=== PATIENT | male | born 1995 | race Two or more races ===

== ENCOUNTER → 2020-12-04 11:33 | Outpatient (BNVA) | payer OTHER, SELFPAY | PROVIDERS: Visit Provider Physician Assistant Medical | DX: S00.212A Abrasion of left eyelid and periocular area, initial encounter (principal); S00.81XA Abrasion of other part of head, initial encounter; W20.8XXA Other cause of strike by thrown, projected or falling object, initial encounter | CPT/HCPCS: 99202 ==

== ENCOUNTER → 2020-12-06 15:23 | Outpatient (BNVA) | payer OTHER, SELFPAY | PROVIDERS: Visit Provider Physician Assistant Medical | DX: S00.212A Abrasion of left eyelid and periocular area, initial encounter (principal); S00.81XA Abrasion of other part of head, initial encounter; W20.8XXA Other cause of strike by thrown, projected or falling object, initial encounter | CPT/HCPCS: 99213 ==

== ENCOUNTER 2023-07-14 13:28 | Emergency (ER) | payer OTHER, SELFPAY ==
--- NOTE | ~2023-07-14 | XR_ITS ---
EXAMINATION: XR HAND, RIGHT CLINICAL INFORMATION: Hand caught with machinery at work. COMPARISON: None available. TECHNIQUE: PA, lateral, and oblique views of the right hand. FINDINGS: Bandaging is identified about the third digit. Soft tissue injury is seen at the level of the third middle phalanx but no fracture or dislocation. Alignment and articulations are maintained. Mild soft tissue prominence second PIP. XR/XR hand RT min 3V IMPRESSION: Third digit soft tissue injury. No acute bony pathology.
[2023-07-14 13:34] VITALS: BP 160/107; PULSE 106; RESP 19; TEMP 36.6; O2SAT 99; BMI 37.8
--- NOTE | 2023-07-14 13:35 | ED.GENADULT ---
HPI - General Adult General Chief complaint: Wound/Laceration Stated complaint: R Finger Lac Work Injury 07/14/23 Time Seen by Provider: 07/14/23 15:38 Source: patient Mode of arrival: ambulatory Limitations: no limitations History of Present Illness HPI narrative: 27 year old male with no chronic history presents to ER for evaluation of laceration to right 3rd digit that he sustained 3 hours ago at his jobsite. 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 Describes pain to site of injury but no pain elsewhere. Reports the laceration is still actively bleeding. Denies taking any medications ASSESSMENT CLINICIAN. Denies weakness, dizziness, lightheadedness, other injuries. complaint: laceration Onset (ago): hour(s) Location: upper extremity (Right 3rd phalange) Radiation: non-radiation Associated symptoms: denies other symptoms Related Data Allergies Allergy/AdvReac Type Severity Reaction Status Date / Time No Known Allergies Allergy Verified 07/14/23 13:34 Review of Systems Review of Systems: Yes all other systems are reviewed and are negative [facility] Social History Social History Advance Directives: No Advance Directives Information Provided: Yes Physical Exam ED Vital Signs: Vital Signs - 24 hr 07/14/23 13:34 07/14/23 15:41 Temperature 98 F Pulse Rate 106 H 95 Respiratory Rate 19 18 Blood Pressure 160/107 H 152/90 H Pulse Oximetry 99 99 Oxygen Delivery Method Room Air BMI result Body Mass Index 37.8 Const General: cooperative, healthy appearing, comfortable and no acute distress Nutritional Appearance: average body habitus Orientation/consciousness: patient oriented x3 Limitations: no limitations Cardio Peripheral pulses: radial pulses present Neuro General: patient oriented x3 Extrem Right upper extremity: Extremity exam: right hand Details: normal capillary refill, tenderness, normal ROM of fingers and laceration (3 cm linear laceration. Actively bleeding. ) 3rd digit dorsal aspect distal Details: linear and actively bleeding Course Course Course Narrative: RME- 27 year old male presents for evaluation of right hand injury after a work injury. Sustained laceration of right 3rd finger about the PIP joint on the dorsal surface. Very small lac to right 4th finger.. Needs tetanus which was ordered Medications Administered Discontinued Medications Generic Name Dose Route Start Last Admin Trade Name Freq PRN Reason Stop Dose Admin Diphtheria/Tetanus/Acell Pertussis 0.5 ml 07/14/23 13:37 07/14/23 15:50 Diphth,Pertus(Acell),Tet Adult 0.5 Ml Syringe IM 07/14/23 13:38 0.5 ml .ONCE ONE Administration Lidocaine HCl 5 ml 07/14/23 16:08 07/14/23 16:13 Lidocaine Hcl 1 % Mpf 5 Ml Vial SUBCUT 07/14/23 16:09 5 ml ONCE ONE Administration Procedures Laceration Laceration 1: Site: other (Right, dorsal, 3rd digit, just distal to PIP joint.) Side (If applicable): right Size (cm): 3 Description: linear Depth: simple, single layer Local Anesthetic: lidocaine 1% Amount of anesthesia used (mL): 4 Pre-repair: wound explored Skin layer closed with: vicryl Size (cm): 4-0 Number of sutures: 3 Technique: simple, interrupted Medical Decision Making Medical Decision Making MDM Narrative: 27 year old male with no chronic history presents to ER for evaluation of laceration sustained at work to right 3rd finger. PE reveals 3 cm linear laceration to dorsum of right 3rd digit, just distal to PIP joint. ROM intact. Sensation intact. Radial pulse intact. Plan: XR right hand, wound closure with 3 sutures, Tdap immunization. XR reveals no acute bony abnormality. Wound is successfully closed and bleeding is stopped. Tdap administered. stable for d/c home, wound care discussed Differential Diagnosis Differential Diagnoses: The differential diagnosis associated with the presentation includes Cutaneous laceration, tendon injury, phalange fracture, phalange dislocation Independent Interpretation I performed an independent interpretation of an: Plain X-Ray Interpretation: I have reviewed the patient's imaging and I am in agreement with the radiologist impression. no acute fx or bony involvement Radiology Impression Discussion of test interpretation with radiology: I have reviewed the radiologist's reading. Radiologist Impression: XR/XR hand RT min 3V IMPRESSION: Third digit soft tissue injury. No acute bony pathology. Prescription Management I considered prescription management with: Pain Medication and Antibiotic Critical Care Time Critical Care Time Critical Care Time: No Discharge Plan Discharge Clinical Impression: Laceration Patient Disposition: Home, Self-Care Instructions: Finger Laceration (ED) Additional Instructions: Your x-ray did not show any fractures. 3 stitches were used to close your wound today You will need your stitches out in 7-10 days. See you doctor for this or come back to the ER and we will remove them. Do not get wet for 24 hours, after that you can briefly wash with soap and water then pat dry. Keep wound clean and covered. Do not submerge in water, no swimming. If you develop signs of infection including increased pain, swelling, redness or drainage of pus come back to the ER for further evaluation. Interventions: ED Discharge Assessment Last Done: 07/14/23 17:14 Discharge Date/Time: 07/14/23 17:14
[2023-07-14 15:41] VITALS: BP 152/90; PULSE 95; RESP 18; O2SAT 99
[2023-07-14] MEDS: Diphth,Pertus(ACell),Tet Adult 0.5 ML SYRINGE IM (15:50)
[2023-07-14] MEDS: Lidocaine HCl 1 % MPF 5 ML VIAL SUBCUT (16:13)
== END 2023-07-14 17:14 | disposition home or self-care (01) ==
PROVIDERS: Emergency Provider Internal Medicine
DX: S61.212A Laceration without foreign body of right middle finger without damage to nail, initial encounter (principal); S60.412A Abrasion of right middle finger, initial encounter; W26.9XXA Contact with unspecified sharp object(s), initial encounter; Y93.9 Activity, unspecified; Y92.9 Unspecified place or not applicable; Y99.0 Civilian activity done for income or pay; Z23 Encounter for immunization
CPT/HCPCS: 12002; 73130; 90471; 90715; 99283; 99284